=== PATIENT | female | born 2000 | race Caucasian/White ===

== ENCOUNTER 2022-11-04 04:43 | Emergency (ER) | payer OTHER, SELFPAY ==
[2022-11-04] VITALS (27 sets, daily range): BP systolic 111–137; BP diastolic 66–92; PULSE 85–95; RESP 18; TEMP 36.2; O2SAT 96–100
--- NOTE | 2022-11-04 05:15 | ED.NURSE ---
OB RN in room doing OB assessment.
--- NOTE | 2022-11-04 05:54 | CRLHL7_ITS ---
For Patients: As a result of the Century Cures Act, medical imaging exams and procedure reports are released immediately into your electronic medical record. You may view this report before your referring provider. If you have questions, please contact your health care provider. INDICATION: Right upper quadrant abdomen pain. Twenty-seven weeks . TECHNIQUE: Ultrasound abdomen limited. Sonographic images of the right upper quadrant were obtained using hernandez-scale and color Doppler images. COMPARISON: None. FINDINGS: Liver: Normal in size and echotexture. No suspicious masses. No intrahepatic biliary dilatation. Portal vein is patent with blood flow toward the liver. Gallbladder: No stones or sludge. Normal wall thickness. No pericholecystic fluid. Common bile duct: 3 mm. Pancreas: Unremarkable. Right kidney: Normal in size. Normal echotexture and cortex. Mild hydronephrosis. No mass or stones. Vasculature: Proximal abdominal aorta and IVC are unremarkable. IMPRESSION: Mild right renal hydronephrosis may be related. However, an obstructing ureteral stone could also create this appearance. Remainder of the exam is unremarkable. Dictated by Danie Daugherty MD @ 11/04/2022 7:48:16 AM (Electronically Signed)
--- NOTE | 2022-11-04 05:56 | ED.GENADULT ---
HPI - General Adult General Chief complaint: Abdominal Pain Stated complaint: stomach pain in the upper right side,25 weeks preg Time Seen by Provider: 11/04/22 05:41 Source: patient and family Mode of arrival: ambulatory Limitations: no limitations History of Present Illness HPI narrative: 21-year-old 1 para 0 at 27 weeks gestation per her report with an EDC of 02/02/2023 presents with right upper quadrant abdominal pain for the past 1-1/2 hours. Pain awoke her from sleep at 3:00 a.m. she initially thought she might need to have a bowel movement but was unable to do so. She reports her last bowel movement was around 7:00 p.m. tonight after eating dinner and was normal. For dinner, she had a frozen chicken [place] with mashed potatoes and carrots. About a 1/2 hour after the pain started, she went downstairs. She did have an episode of vomiting. No in the emergency department, the pain still persists and comes in waves. It is down now to about a 4/10 and the nausea has subsided moderately as well. She has not had any vomiting for us. Pain radiated to the right lower central abdomen initially. The radiation has now resolved. She was monitored for 1st hour by the OB nurses and is been clear that she is not in labor in her fetus has reactive heart tones, category 1 strip reported to me. movement noted. No prior history of similar symptoms, no vaginal bleeding. No dysuria, no fever. No family history of gallbladder disease. No prior abdominal surgeries. Has not tried any interventions like stomach acid medicine, Zofran, etc. to help with her symptoms. Past medical history reported as benign. Denies long-term health problems. Denies long-term medications or allergies. Reports that her Ob provider is in [place]. We are able to pull up some very limited notes from [facility]. ROS is notable for the abdominal symptoms as above, otherwise denies times 12 systems. Related Data Allergies Allergy/AdvReac Type Severity Reaction Status Date / Time No Known Drug Allergies Allergy Verified 11/04/22 04:49 [facility] Social History Smoking Status: Never smoker How often do you have a drink containing alcohol: never AUDIT-C Alcohol total score: 0 Non-prescribed substance use: denies use Exam Const: Vital Signs, click to edit/add: Vital Signs - 24 hr 11/04/22 04:49 11/04/22 05:08 11/04/22 05:30 Temperature 97.1 F L Pulse Rate 93 89 Pulse Rate [Left P ulse Oximeter] 88 Respiratory Rate 18 Blood Pressure Blood Pressure [Ri ght Upper Arm] 123/77 Pulse Oximetry 100 99 97 Oxygen Delivery Me thod Room Air 11/04/22 05:33 11/04/22 05:34 11/04/22 05:45 Temperature Pulse Rate 93 86 92 Pulse Rate [Left P ulse Oximeter] Respiratory Rate Blood Pressure 137/87 Blood Pressure [Ri ght Upper Arm] Pulse Oximetry 99 97 96 Oxygen Delivery Me thod 11/04/22 05:46 11/04/22 06:00 11/04/22 06:02 Temperature Pulse Rate 85 87 87 Pulse Rate [Left P ulse Oximeter] Respiratory Rate Blood Pressure 136/82 136/74 Blood Pressure [Ri ght Upper Arm] Pulse Oximetry 96 96 98 Oxygen Delivery Me thod 11/04/22 06:15 11/04/22 06:17 11/04/22 06:24 Temperature Pulse Rate 95 85 91 Pulse Rate [Left P ulse Oximeter] Respiratory Rate Blood Pressure 133/82 Blood Pressure [Ri ght Upper Arm] Pulse Oximetry 97 96 100 Oxygen Delivery Me thod 11/04/22 06:30 11/04/22 06:32 11/04/22 06:45 Temperature Pulse Rate 95 94 95 Pulse Rate [Left P ulse Oximeter] Respiratory Rate Blood Pressure 114/66 Blood Pressure [Ri ght Upper Arm] Pulse Oximetry 97 97 97 Oxygen Delivery Me thod 11/04/22 06:47 11/04/22 07:00 11/04/22 07:02 Temperature Pulse Rate 87 92 85 Pulse Rate [Left P ulse Oximeter] Respiratory Rate Blood Pressure 123/74 126/80 Blood Pressure [Ri ght Upper Arm] Pulse Oximetry 98 98 98 Oxygen Delivery Me thod Documenting provider has reviewed patient's vital signs: yes Common normals: no apparent distress General appearance: cooperative, comfortable and well kempt HENMT: Common normals: normocephalic and head/scalp atraumatic Head and scalp: normocephalic and atraumatic Mouth: oral and palatal mucosa normal Throat: posterior oropharynx normal Eye: Common normals: conjunctivae normal General eye: normal appearance of both eyes Conjunctiva: conjunctiva(e) normal Neck & C-Spine: Common normals: no lymphadenopathy Resp: Common normals: normal respiratory effort, no use of accessory muscles and clear to auscultation bilaterally Effort & inspection: able to speak in complete sentences Auscultation: clear to auscultation bilaterally Cardio: Common normals: regular rate, regular rhythm, S1 normal heart sound, S2 normal heart sound and no murmurs Rate: regular rate Rhythm: regular rhythm Heart sounds: S1 normal and S2 normal GI: Other: Abdomen gravid, fundal height consistent with reported age. Nontender. There is mild tenderness to palpation in the right upper quadrant. Bowel sounds can be auscultated in all 4 quadrants. Abdomen otherwise soft. Other than the fundus, no obvious mass. Liver and spleen do not seem enlarged. Skin overlying normal in appearance. : Common normals: no CVA tenderness Bladder/kidney exam: no CVA tenderness Back & Pelvis: Common normals: no CVA tenderness Extremity: Common normals: normal to inspection and no pedal edema Neuro: Speech: speech normal Motor exam: no tremor noted and no movement abnormalities noted Psych: Common normals: speech normal Appearance: well kempt Attitude: engaged Activity/motor behavior: appropriate eye contact Speech: normal speech Mood and affect: euthymic mood Insight: insight good Judgement: judgment good Skin: Common normals: no rashes or lesions noted Narrative: No signs of bruising, injury or trauma. General skin exam: no rashes or lesions noted Course Vital Signs Vital signs: Initial Vital Signs Temperature 97.1 F L 11/04/22 04:49 Temperature Source Temporal Artery Scan 11/04/22 04:49 Pulse Rate 88 11/04/22 04:49 Pulse Rhythm 11/04/22 04:49 Respiratory Rate 18 11/04/22 04:49 Blood Pressure 123/77 11/04/22 04:49 Blood Pressure Mean 92 11/04/22 04:49 Blood Pressure Position Semi-Fowlers 11/04/22 04:49 Pulse Oximetry 100 11/04/22 04:49 Oxygen Delivery Method 11/04/22 04:49 Vital Signs Temperature 97.1 F L 11/04/22 04:49 Pulse Rate 88 11/04/22 04:49 Respiratory Rate 18 11/04/22 04:49 Blood Pressure 123/77 11/04/22 04:49 Pulse Oximetry 100 11/04/22 04:49 Oxygen Delivery Method 11/04/22 04:49 Temperature 97.1 F L 11/04/22 04:49 Pulse Rate 85 11/04/22 07:02 Respiratory Rate 18 11/04/22 04:49 Blood Pressure 126/80 11/04/22 07:02 Pulse Oximetry 98 11/04/22 07:02 Oxygen Delivery Method 11/04/22 04:49 Medical Decision Making MDM Narrative Medical decision making narrative: Differential diagnosis high for gallbladder disease, especially biliary dyskinesia at her gestational age. Cannot exclude cholecystitis, gallstones, GERD, liver complications from preeclampsia or other similar etiology. Recommended basic screening labs, urinalysis, right upper quadrant ultrasound. OB nurses requesting medical clearance for me prior to calling Ob provider. My workup will take about 2-1/2 hours. Update: Ultrasound report reviewed, normal. Labs are reassuring as well. No signs of obstruction. Suspect biliary dyskinesia. Common at this stage in . Findings discussed with patient. Her pain and nausea have markedly improved. She is to call her Ob provider today and update them. They will need to see her within a couple of days to re-evaluate. I have talked to her that I would like for her to keep her care within [facility] system while we are sorting this out. It will be more difficult for her Ob provider to see my findings and for me to see her obstruct trickle records. She is welcome to transfer her obstetrical care to our facility but otherwise it would be in her best interest to keep her care within [facility] health system for now. Lab Data Lab results reviewed: Yes I reviewed the patient's lab results Lab results narrative: Mild leukocytosis only, otherwise reassuring accept mild anemia, not atypical in Labs: Lab Results 11/04/22 11/04/22 11/04/22 Range/Units 06:00 06:00 06:20 WBC 13.11 H (4.50-11.00) K/uL RBC 3.42 L (4.00-5.20) m/uL Hgb 10.5 L (12.0-16.0) gm/dL Hct 30.9 L (33.0-51.0) % MCV 90 (80-100) fL MCH 31 (26-34) pg MCHC 34 (32-36) gm/dL RDW Coeff of Aristeo 12.2 (11.5-15.5) % Plt Count 279 (140-440) K/uL Neut % (Auto) 79.6 H (42.0-72.0) % Lymph % (Auto) 11.4 L (20-44) % Elliott % (Auto) 7.6 (0.0-11.0) % Eos % (Auto) 0.3 (0.0-7.0) % Baso % (Auto) 0.1 (0.0-3.0) % Neut # (Auto) 10.40 H (1.7-7.0) K/uL Lymph # (Auto) 1.50 (0.90-2.90) K/uL Elliott # (Auto) 1.00 H (0.00-0.90) K/UL Eos # (Auto) 0.00 (0.00-0.50) K/uL Baso # (Auto) 0.00 (0.00-0.30) K/uL Sodium 133 L (135-149) mmol/L Potassium 3.8 (3.6-5.1) mmol/L Chloride 104 (96-114) mmol/L Carbon Dioxide 27 (20-32) mmol/L BUN 9 (5-24) mg/dL Creatinine 0.5 (0.5-1.5) mg/dL Estimated GFR 135 ml/min Glucose 90 (60-115) mg/dL Calcium 7.9 L (8.4-10.6) mg/dL Total Bilirubin 0.3 (0.1-1.5) mg/dL Direct Bilirubin 0.2 (0.0-0.5) mg/dL AST 22 (12-35) U/L ALT 20 (4-35) U/L Alkaline Phosphatase 66 (40-150) U/L C-Reactive Protein 0.7 (0.5-1.0) mg/dL Total Protein 6.2 (6.0-8.3) g/dL Albumin 3.4 (3.3-5.0) g/dL Lipase 57 (23-300) U/L Urine Color Yellow (Yellow) Urine Appearance Clear (Clear) Urine pH 7.0 (5.0-8.5) Ur Specific [place] 1.015 (1.000-1.030) Urine Protein Negative (Negative) Urine Glucose (UA) Negative (Negative) Urine Ketones Negative (Negative) Urine Blood Negative (Negative) Urine Nitrite Negative (Negative) Urine Bilirubin Negative (Negative) Urine Urobilinogen 0.2 (0.2-1.0) Ur Leukocyte Esterase Negative (Negative) Imaging Data Abdominal ultrasound: Attestation: I have reviewed the pertinent imaging results. My impression: Normal appearing gallbladder Radiologist's impression: IMPRESSION: Mild right renal hydronephrosis may be related. However, an obstructing ureteral stone could also create this appearance. Remainder of the exam is unremarkable. Discharge Plan Discharge Clinical Impression: Biliary dyskinesia Patient Disposition: Home, Self-Care Condition: Improved Instructions: Biliary Dyskinesia (DC) Additional Instructions: Your episodes seems consistent with a episode of biliary colic or a mild ?gallbladder attack?. These unfortunately can be very common in . The gallbladder itself does not appear acutely infected and is not causing obstruction of your biliary drainage system. This means that you do not need surgery. Unfortunately, you may continue to have episodes similar to this. Your Ob provider will be your point person for management. It is important because of this that you are following within the same health system for your obstetrical and general care. We will need to have access to each other's records to properly care for you. Call your Ob provider today and make a follow-up appointment for the next couple of days to see how things are going. It is safe to take Tylenol at this stage of for discomfort. Overall, a low-fat diet may reduce her chance of future episodes. If you begin running a fever over 100.4 and have persistent vomiting that last for more than 12 hours, please come back to the emergency department. Activity Level: No Restrictions Discharge Diet: Low Fat/Low Cholesterol Follow Up/Referrals: Provider,Not a Local [Primary Care Provider] - Stand Alone Forms: [email or web address] Info Instructions
--- NOTE | 2022-11-04 06:18 | PC.OBNST ---
NST Note NST Note Start: 11/04/22 06:15 Freq: ONCE Status: Active Protocol: Document 11/04/22 06:15 GLO (Rec: 11/04/22 06:17 GLO [id number]) NST Note 1 Para (# of births) 0 EDC [birth year]/02/23 Gestational Age In Weeks & Days 27 Weeks & 1 Days Patient Presented with Complaint(s) of Pain,Nausea and vomiting, Headache If Observation after an injury, describe Right Upper Quadrant Pain, Emesis this AM and Migraine yesterday If Pain, describe location 6/10 RUQ Appropriate for Gestational Age Yes RN Alex C[place] Date 11/04/22 Appropriate for Gestational Age Yes VANDANA [place] Date 11/04/22 OB NST charge Yes Complete NST Note via Write Note Yes The provider's electronic signature indicates the NST is reactive/appropriate for gestational age. *Note to provider: If an addendum is required, open the patient's chart and click on the note under the Nurse/Allied Health tab.
[2022-11-04 06:22] LABS: Basophils Percent Auto 0.1 % (0.0-3.0); Eosinophils Percent Auto 0.3 % (0.0-7.0); Hematocrit 30.9 % (33.0-51.0); Hemoglobin* 10.5 gm/dL (12.0-16.0); Lymphocytes Percent Auto 11.4 % (20-44); Mean Corpuscular HGB Conc 34 gm/dL (32-36); Mean Corpuscular Hemoglobin 31 pg (26-34); Mean Corpuscular Volume 90 fL (80-100); Monocytes Percent Auto 7.6 % (0.0-11.0); Neutrophils Percent Auto 79.6 % (42.0-72.0); Platelet Count* 279 K/uL (140-440); RDW Coefficient of Variation % 12.2 % (11.5-15.5); Red Blood Count 3.42 m/uL (4.00-5.20); White Blood Count* 13.11 K/uL (4.50-11.00)
[2022-11-04 06:24] LABS: Albumin* 3.4 g/dL (3.3-5.0); Chloride* 104 mmol/L (96-114); Potassium* 3.8 mmol/L (3.6-5.1); Sodium* 133 mmol/L (135-149)
[2022-11-04 06:25] LABS: Slide Review Reflex No
[2022-11-04 06:26] LABS: Creatinine* 0.5 mg/dL (0.5-1.5); Estimated Glomerular Filt Rate 135 ml/min
[2022-11-04 06:27] LABS: Alanine Aminotransferase* 20 U/L (4-35); Alkaline Phosphatase* 66 U/L (40-150); Aspartate Amino Transferase* 22 U/L (12-35); Bilirubin Direct* 0.2 mg/dL (0.0-0.5); Bilirubin Total* 0.3 mg/dL (0.1-1.5); Blood Urea Nitrogen* 9 mg/dL (5-24); Calcium* 7.9 mg/dL (8.4-10.6); Carbon Dioxide* 27 mmol/L (20-32); Glucose* 90 mg/dL (60-115); Lipase* 57 U/L (23-300); Total Protein* 6.2 g/dL (6.0-8.3)
[2022-11-04 06:30] LABS: C Reactive Protein* 0.7 mg/dL (0.5-1.0)
[2022-11-04 06:30] LABS: Appearance Urine Clear (Clear); Bilirubin Urine Negative (Negative); Blood Urine Negative (Negative); Color Urine Yellow (Yellow); Glucose Urine Negative (Negative); Ketones Urine Negative (Negative); Leukocyte Esterase Urine Negative (Negative); Nitrite Urine Negative (Negative); Protein Urine Negative (Negative); Specific Gravity Urine 1.015 (1.000-1.030); Urobilinogen Urine 0.2 (0.2-1.0)
== END 2022-11-04 08:12 | disposition home or self-care (01) ==
PROVIDERS: Emergency Provider Family Medicine
DX: K82.8 Other specified diseases of gallbladder (principal)
CPT/HCPCS: 36415; 59025; 76705; 80048; 80076; 81003; 83690; 85025; 86140; 99283; 99284